=== PATIENT | female | born 1995 | race Hispanic/Latino ===

== ENCOUNTER 2021-03-06 08:06 | Day surgery (SDC) | payer MEDICAID ==
[2021-03-02 12:34] VITALS: BP 119/58
[2021-03-05 11:29] LABS: BASOPHILS % (AUTO) 0.3 % (0.0-5.0); EOSINOPHILS % (AUTO) 3.3 % (0.0-8.0); LYMPHOCYTES % (AUTO) 42.1 % (21.0-51.0); MEAN CORPUSCULAR HEMOGLOBIN 30.7 pg (27.0-33.0); MEAN CORPUSCULAR VOLUME 90.1 fL (79-99); MONOCYTES % (AUTO) 5.7 % (3.0-13.0); NEUTROPHILS % (AUTO) 48.3 % (40.0-77.0); PLATELET COUNT (AUTO) 207 K/uL (130-400); RED BLOOD CELL COUNT(AUTO) 4.66 MIL/uL (4.00-5.50); RED CELL DISTRIBUTION WIDTH 12.3 % (11.0-15.5); WHITE BLOOD COUNT (AUTO) 6.6 K/uL (4.8-10.8)
[~2021-03-06] VITALS: Ht 165.1 cm; Wt 81.3 kg
[~2021-03-06 08:06] MED LIST: LACTATED RINGERS 1000ML 1,000 ML IV SCH
[2021-03-06] MEDS ORDERED: LIDOCAINE PF 100MG/5ML (2%) SYRINGE 5ML ONE (08:58)
[2021-03-06] MEDS ORDERED: PROPOFOL 10 MG/ML 20ML VIAL IV ONE (08:59)
[2021-03-06] MEDS ORDERED: FENTANYL CITRATE PF 50 MCG/1 ML 2ML VIAL ONE (08:59)
[2021-03-06] MEDS ORDERED: MIDAZOLAM HCL 1 MG/ML 2ML VIAL ONE (08:59)
[2021-03-06 09:00] VITALS: BP 115/67
[2021-03-06] MEDS ORDERED: ONDANSETRON 4MG INJ ONE (10:00)
[2021-03-06] MEDS ORDERED: OXYTOCIN 10 USP UNITS/ML ONE (10:04)
[2021-03-06] MEDS ORDERED: LACTATED RINGERS 1000ML 1,000 ML IV SCH (10:30)
[2021-03-06] MEDS ORDERED: IPRATROPIUM/ALBUTEROL SULFATE 3 ML SOLUTION IH PRN (10:30)
[2021-03-06 10:55] VITALS: BP 113/65
[2021-03-06] MEDS ORDERED: FENTANYL CITRATE PF 50 MCG/1 ML 2ML VIAL IVP PRN (11:00)
[2021-03-06] MEDS ORDERED: RACEPINEPHRINE HCL 2.25% 0.5 ML NEB SOLN NEB PRN (11:00)
[2021-03-06] MEDS ORDERED: ONDANSETRON 4MG INJ IVP PRN (11:00)
[2021-03-06] MEDS ORDERED: MEPERIDINE-PF 25 MG/ML SYG IVP PRN (11:00)
[2021-03-06] MEDS ORDERED: MORPHINE 5 MG/ML VIAL (5MG OR GREATER DOSE) IVP PRN (11:00)
[2021-03-06] MEDS ORDERED: METOCLOPRAMIDE 10 MG/2 ML VIAL IVP PRN (11:00)
[2021-03-06] MEDS ORDERED: NALOXONE HCL 0.4 MG/1 ML ML IVP PRN (11:00)
[2021-03-06] MEDS ORDERED: PROMETHAZINE HCL 25 MG/ML 1ML AMPULE IM PRN (11:00)
[2021-03-06 11:15] VITALS: BP 105/68
[2021-03-06 11:30] VITALS: BP 105/66
[2021-03-06 11:45] VITALS: BP 107/65
== END 2021-03-06 11:55 | disposition home or self-care (01) ==
LOC: DAH 08:06
PROVIDERS: ATTEND Specialist
DX: O02.1 Missed abortion (principal); N85.4 Malposition of uterus; Z20.822 Contact with and (suspected) exposure to COVID-19
CPT/HCPCS: 36415; 59820; 85025; 87426; A4215; A4221; A4222; A4223; A4351; A4600; A4663; J2250; J2405; J2590; J3010; J3490 ×2; J7120; J2001; J2704